=== PATIENT | female | born 1940 | race African-American/Black ===

== ENCOUNTER 2023-02-03 23:39 | Emergency (ER) | payer OTHER ==
[~2023-02-03] VITALS: Ht 157.5 cm; Wt 70.0 kg
[2023-02-04 00:30] LABS: Basophils # (auto) 0 10 ^3/uL (0-0.2); Basophils % (auto) 0.9 % (0.0-2.0); Eosinophils # (auto) 0.3 10 ^3/uL (0-0.8); Eosinophils % (auto) 5.3 % (0.0-7.0); Hematocrit 45.8 % (36.0-46.0); Hemoglobin 15.1 g/dL (12.2-16.2); Lymphocytes # (auto) 1.3 10 ^3/uL (0.4-5.4); Lymphocytes % (auto) 24.9 % (10.0-50.0); Mean Corpuscular Hemoglobin 29.9 pg (28.0-32.0); Mean Corpuscular Volume 90.8 fL (80.0-100.0); Monocytes # (auto) 0.6 10 ^3/uL (0-1.3); Monocytes % (auto) 10.5 % (0.0-12.0); Neutrophils # (auto) 3.1 10 ^3/uL (1.6-8.6); Neutrophils % (auto) 58.4 % (37.0-80.0); Red Blood Cells 5.05 10^6/uL (4.0-5.20); Red Cell Distribution Width 14.2 % (11.8-14.3); White Blood Cell 5.3 10^3/uL (4.4-10.8)
[2023-02-04] MEDS ORDERED: KETOROLAC TROMETH 30 MG/ML 1ML VIAL IV ONE (00:30)
[2023-02-04 00:48] LABS: Albumin 3.3 g/dL (3.4-5.0); BUN/Creatinine Ratio 13.3 (10.0-20.0); Calcium 9.6 mg/dL (8.5-10.1); Potassium 3.7 mmol/L (3.5-5.1)
[2023-02-04 00:51] LABS: Bilirubin, Total 0.3 mg/dL (0.2-1.0); Total Protein 6.8 g/dL (6.4-8.2)
[2023-02-04] MEDS ORDERED: IPRATROPIUM BROM 0.5 MG/2.5ML INH SOL NEB ONE (01:15)
[2023-02-04] MEDS ORDERED: methylPREDNISolone SOD SUCC 125 MG/2 ML VL IV ONE (01:15)
[2023-02-04] MEDS ORDERED: ALBUTEROL SULF 2.5 MG/0.5ML(0.5%) NEB SOLN NEB ONE (01:15)
[2023-02-04] MEDS ORDERED: PREGABALIN 25 MG CAP PO ONE (06:30)
[2023-02-04] MEDS ORDERED: VENLAFAXINE HCL 37.5mg XR cap PO ONE (06:30)
[2023-02-04 11:00] VITALS: BP 119/70
== END 2023-02-04 13:31 | disposition home or self-care (01) ==
LOC: ER 23:39 → EDBD 23:39 → ER 02-04 13:31
DX: J44.1 Chronic obstructive pulmonary disease with (acute) exacerbation (principal); R09.02 Hypoxemia; E11.9 Type 2 diabetes mellitus without complications; R07.89 Other chest pain
CPT/HCPCS: 36415; 36600; 71045; 80053; 82805; 83880; 84484; 85025; 93005; 94640; 96374; 96375; 99285; J1885; J2930; J7644

== ENCOUNTER 2025-08-26 17:31 | Inpatient (IN) | payer OTHER ==
[~2025-08-26] VITALS: Ht 149.9 cm; Wt 56.7 kg
[2025-08-26 19:10] LABS: Hematocrit 40.3 % (36.0-46.0); Hemoglobin 13.4 g/dL (12.2-16.2); Mean Corpuscular Hemoglobin 29.5 pg (28.0-32.0); Mean Corpuscular Volume 88.6 fL (80.0-100.0); Nucleated Red Blood Cells % 0.1 %
[2025-08-26 19:33] LABS: Alanine Aminotransferase 15 U/L (7-40); Albumin 3.8 g/dL (3.2-4.8); Alkaline Phosphatase 86 U/L (46-116); Anion Gap 8 (5-15); BUN/Creatinine Ratio 10.7 (10.0-20.0); Blood Urea Nitrogen 13 mg/dL (9-23); Calcium 8.9 mg/dL (8.7-10.4); Carbon Dioxide 29 mmol/L (20-31); Glucose 97 mg/dL (74-106); Potassium 3.9 mmol/L (3.5-5.1); Total Protein 6.4 g/dL (5.7-8.2)
[2025-08-26 19:35] LABS: Bilirubin, Total 0.3 mg/dL (0.2-1.0); Chloride 110 mmol/L (98-107); Sodium 147 mmol/L (136-145)
--- NOTE | 2025-08-26 20:03 | ED.PDOC ---
History of Present Illness HPI Comments Ms. Granda is a 85-year-old female with prior medical history of type 2 diabetes mellitus with peripheral neuropathy, osteoarthritis, osteoporosis, secondary pulmonary hypertension, chronic respiratory failure, who presents today via with chief complaint of shortness of breath. The patient is a poor historian and states that she is unsure why she was brought for evaluation. She states she was at a doctor's appointment at [facility] for evaluation of peripheral neuropathy, when she was told she needed to be brought to the emergency room. Per EMS notes, the patient presented shortness of breath and was saturating 88% requiring supplemental. She she used to have home oxygen 2L [place], however for reasons unknown to her she no longer has home oxygen. She states she utilizes her daughter's oxygen tank at home as needed, with frequent shortness of breath on minimal exertion. Additionally refers presence of dry cough for the last 2 months. She denies fever, nausea, vomiting, nasal congestion, sore throat, chest pain, and palpitations. She was brought to the emergency department and placed on supplemental oxygen pending further evaluation. Attestation note: Dr. Kebede: I was the supervising attending for this ED encounter. Please see the resident's notes. I was available for questions and consultations. Differential diagnosis: DDx include ACS, unstable angina, anxiety, PE, pneumothroax, neoplasm, cardiac ischemia, COPD, asthma, CHF, pleural effusion, tobacco abuse, pneumonia, hypoxia, hypercapnia, anemia., infection/sepsis., pulmonary edema. Asthma, Cardiac tamponade, infection. MDM: MDM: patient presented with the above HPI.--dyspnea---workup was initiated. patient was found with the above mentioned diagnosis. the following medications were ordered: please refer to order lists of meds and tests obtained by myself Dr. Kebede. Patient ED course and VS have been stabilized. Patient has been reassessed in the ED and remained in a stable condition. Pertinent incidental findings were discussed with the patient and/or family. Patient/family voices understanding and is agreeable with plan. Patient has been observed in the ED adequate length of time to insure improvement/stability. Escalation of care considered: Consideration of escalation to observation or admission [facility] facility was consulted. Given the patient's findings of pulmonary embolus, the Patient was ADMITTED to the medicine team for further evaluation and treatment of their presentation. Lovenox initiated in the ED. No contraindications for anticoagulation. All the reports of any imaging studies that were ordered by myself were reviewed by myself. Chief Complaint: Shortness of Breath Time Seen by MD: 18:03 Reviewed Notes: Allergies Allergies: Coded Allergies: NO KNOWN ALLERGIES (Unverified , 02/04/23) Home Meds Active Scripts Pantoprazole Sodium Sesquihydr (Protonix) 40 Mg Tab, 40 MG PO DAILY for 30 Days, #30 TAB 3 Refills Prov:LONG ARVIZU MD 08/28/25 Apixaban Base (ELIQUIS) 5 Mg Tab, 10 MG PO BID for 7 Days, #14 TAB 10MG BID X 7 DAYS THEN 5MG PO BID FOR AT LEAST 6 MONTHS FOR DVT/PE TREATMENT Prov:LONG ARVIZU MD 08/28/25 Apixaban Base (ELIQUIS) 5 Mg Tab, 5 MG PO BID for 30 Days, #60 TAB 2 Refills Prov:LONG ARVIZU MD 08/28/25 Information Source: Patient Mode of Arrival: EMS Severity: Mild Timing: Hours Duration: Since onset Past Medical History PAST MEDICAL HISTORY: Asthma, COPD, DM Past Medical History (Other): Peripheral neuropathy, osteoarthritis, osteoporosisi, secondary pulmonary hypertension with chronic respiratory failure Surgical History: Denies all surgeries [employer] History: Denies all [employer] Hx Family History Family History: Reviewed,noncontributory to illness Social History Smoker: Non-Smoker, Other (History of second hand spoke exposure for over 20 years ) Alcohol: Denies ETOH Use Drugs: Denies Drug Use Lives In: Home Constitutional: denies: chills, diaphoresis, fatigue, fever, malaise, sweats EENTM: denies: hearing loss, mouth swelling, nasal discharge, nose congestion, nose pain, throat pain, throat swelling Respiratory: reports: cough, shortness of breath; denies: orthopnea, wheezing Cardiovascular: denies: chest pain, dizzy spells, diaphoresis, edema, lightheadedness, palpitations, syncope Gastrointestinal: denies: abdominal pain, difficulty swallowing, nausea, poor appetite, vomiting Genitourinary: denies: burning, dysuria, flank pain, frequency, hematuria, incontinence, urgency Neurological: reports: tingling (Tingling in hands and feet); denies: dizziness, fainting, headache, weakness Musculoskeletal: denies: back pain, joint pain, muscle pain, neck pain Integumetry: denies: rash Physical Exam General Appearance: Normal HEENT: Normal ENT Inspection, PERRL/EOMI, Pharynx Normal Neck: Full Range of Motion, Non-Tender, Normal Inspection Respiratory: Chest Non-Tender, No Accessory Muscle Use, No Respiratory Distress, Normal Breath Sounds (Bilateral chest expansion, normal breath sounds without associated wheezing or crackles ) Cardiovascular: No Edema, No Murmur, Normal Peripheral Pulses, Regular Rate/Rhythm Breast Exam: Deferred Gastrointestinal: No Organomegaly, Non Tender, Normal Bowel Sounds Genitalia: Deferred Pelvic: Deferred Rectal: Deferred Extremities: Normal inspection, Normal range of motion, Non-tender, No pedal edema Neurologic: Normal Affect, Normal Mood Cerebellar Function: NOT DONE Reflexes: NOT DONE Skin: Normal Color Lymphatic: Other (No cervical ) Was a procedure done? Was a procedure done?: No EKG EKG : Pulse Rate (adult): 89 Needles: Normal Cardiac Rhythm: NSR Hypertrophy: LAE Comments Borderline T abnormalities, anterior leads Differential Dx Considerations may include: Respirtory distress, Acute on chronic respiratory failure, pneumonia, bronchitis, influenza, pulmonary embolism, COPD exacerbation X-Ray, Labs, Meds, VS Vital Signs Date Time Temp Pulse Resp B/P (MAP) Pulse Ox O2 Delivery O2 Flow Rate FiO2 08/26/25 23:32 98.1 75 14 139/79 (99) 98 98.1 08/26/25 22:31 18 97 Nasal Cannula* 2 28 08/26/25 21:19 89 08/26/25 20:09 98.3 81 18 130/83 (99) 90 98.3 08/26/25 19:10 98.0 77 17 150/81 (104) 98 98.0 08/26/25 17:54 97.9 90 20 176/70 94 97.9 08/26/25 17:54 20 94 Nasal Cannula* 2 28 08/26/25 17:34 89 Lab Test 08/26/25 23:42 08/26/25 19:03 Range/Units Prothrombin Time 10.6 9.3-11.8 sec Prothrombin Time INR 1.00 0.9-1.15 Activated Partial Thromboplast Time 27.1 24.5-34.5 SEC Troponin I High Sensitivity 15 13 </=34 ng/L White Blood Count 4.3 L 4.4-10.8 10^3/uL Red Blood Count 4.55 4.0-5.20 10^6/uL Hemoglobin 13.4 12.2-16.2 g/dL Hematocrit 40.3 36.0-46.0 % Mean Corpuscular Volume 88.6 80.0-100.0 fL Mean Corpuscular Hemoglobin 29.5 28.0-32.0 pg Mean Corpuscular Hemoglobin Concent 33.3 32.0-36.0 g/dL Red Cell Distribution Width 15.0 H 11.8-14.3 % Platelet Count 230 140-450 10^3/uL Mean Platelet Volume 7.9 6.9-10.8 fL Neutrophils (%) (Auto) 53.7 37.0-80.0 % Lymphocytes (%) (Auto) 33.4 10.0-50.0 % Monocytes (%) (Auto) 8.5 0.0-12.0 % Eosinophils (%) (Auto) 3.3 0.0-7.0 % Basophils (%) (Auto) 1.1 0.0-2.0 % Neutrophils # (Auto) 2.3 1.6-8.6 10 ^3/uL Lymphocytes # (Auto) 1.4 0.4-5.4 10 ^3/uL Monocytes # (Auto) 0.4 0-1.3 10 ^3/uL Eosinophils # (Auto) 0.1 0-0.8 10 ^3/uL Basophils # (Auto) 0 0-0.2 10 ^3/uL Nucleated Red Blood Cells 0.1 % D-Dimer, Quantitative 2.26 H 0.0-0.49 mg/L FEU Sodium Level 147 H 136-145 mmol/L Potassium Level 3.9 3.5-5.1 mmol/L Chloride Level 110 H 98-107 mmol/L Carbon Dioxide Level 29 20-31 mmol/L Anion Gap 8 5-15 Blood Urea Nitrogen 13 9-23 mg/dL Creatinine 1.21 H 0.550-1.02 mg/dL Glomerular Filtration Rate Calc 44 >90 mL/min BUN/Creatinine Ratio 10.7 10.0-20.0 Serum Glucose 97 74-106 mg/dL Calcium Level 8.9 8.7-10.4 mg/dL Total Bilirubin 0.3 0.2-1.0 mg/dL Aspartate Amino Transferase (AST) 21 13-40 U/L Alanine Aminotransferase (ALT) 15 7-40 U/L Alkaline Phosphatase 86 46-116 U/L B-Type Natriuretic Peptide 29.49 0-100 pg/mL Total Protein 6.4 5.7-8.2 g/dL Albumin 3.8 3.2-4.8 g/dL Time of 1ST Reevaluation: 20:30 Reevaluation 1ST: Unchanged Time of 2ND Reevaluation: 23:39 (SPOKE WITH THE SAGE PHYSICIAN AGAIN. I asked specifically if the patient has a any contraindications for anticoagulation based on the history that they have. They said no. They authorized us to keep the patient here given the CT scan findings of pulmonary embolus. Dr. Caro. ) Reevaluation 2ND: Unchanged Patient Education/Counseling: Diagnosis, Treatment Family Education/Counseling: Other SEPSIS Sepsis Screen Date sepsis recognized/suspect: Aug 26, 2025 Time Sepsis recognized/suspect: 1745 Recent Procedure: No On Antibiotic Therapy: No Respiratory Rate >20: No Heart Rate >90: No Temp<36 C (96.8 F) or >38.3 C: No SBP <90 or MAP <65 mmHG: No New Acute Mental Status Change: No Is the patient on CPAP, BIPAP,: No Physician Orders Chest Xray 1 View (08/26/25 18:55) Imaging Transfer Request (08/26/25 22:05) Ct Angio Chest Contrast (08/26/25 22:12) Vital Signs Date Time Temp Pulse Resp B/P (MAP) Pulse Ox O2 Delivery O2 Flow Rate FiO2 08/26/25 23:32 98.1 75 14 139/79 (99) 98 98.1 08/26/25 22:31 18 97 Nasal Cannula* 2 28 08/26/25 21:19 89 08/26/25 20:09 98.3 81 18 130/83 (99) 90 98.3 08/26/25 19:10 98.0 77 17 150/81 (104) 98 98.0 08/26/25 17:54 97.9 90 20 176/70 94 97.9 08/26/25 17:54 20 94 Nasal Cannula* 2 28 08/26/25 17:34 89 Laboratory Tests Test 08/26/25 19:03 White Blood Count 4.3 10^3/uL (4.4-10.8) L Departure 1 Departure Time of Disposition: 21:16 (Patient was brought by ambulance due to shortness of breath and saturation of 88% concerning respiratory distress, acute on chronic respiratory failure, COPD exacerabation, pneumonia, bronchitis, influenza, pulmonary embolism. 1. I ordered and reviewed atleast 3 labs including CBC, CMP, troponins, d-dimer. I have ordered and reviewed the following: EKG showing sinus rhythm, probable left atrial enlargement, borderline T abnormalities and Chest xray with possible hiatal hernia. I have reviewed the above data ... Patient is stable at this time. She is requires admission for further work up and management. She is stable for transfer to [facility]. ) Impression: Primary Impression: Hypoxia Additional Impressions: Respiratory distress Pulmonary embolus Disposition: ADMITTED INPATIENT [facility]mit [facility]: [facility] Condition: Guarded Additional Instructions: Patient was brought via ambulance from a [facility] outpatient clinic due to shortness of breath and saturation of 88% On evaluation here the patient was well, vitals were stable, saturation of > 95% on 2 L of oxygen Physical examination without positive findings CBC shows minor leukopenia with WBCs of 4.3 other findings within normal range, CMP mild hypernatremia of 147 and slightly elevated creatinine 1.21. BNP 29.49, troponins negative EKG shows sinus rhythm, probable left atrial enlargement, borderline T abnormalities Chest x-ray shows possible hiatal hernia with no other acute findings It is considered the patient requires admission for further workup and management On further work up patient was determined to have bilateral pulmonary embolus. She was authorized by [facility] to remain at this institution for further manageme nt. Point of contact with [facility]: Dr. Caro e-Prescriptions Pantoprazole Sodium Sesquihydr (Protonix) 40 Mg Tab 40 MG PO DAILY for 30 Days, #30 TAB 3 Refills Prov: LONG ARVIZU MD 08/28/25 Apixaban Base (ELIQUIS) 5 Mg Tab 10 MG PO BID for 7 Days, #14 TAB 10MG BID X 7 DAYS THEN 5MG PO BID FOR AT LEAST 6 MONTHS FOR DVT/PE TREATMENT Prov: LONG ARVIZU MD 08/28/25 Apixaban Base (ELIQUIS) 5 Mg Tab 5 MG PO BID for 30 Days, #60 TAB 2 Refills Prov: LONG ARVIZU MD 08/28/25 Discharged With: Self Critical Care Note Critical Care Time?: Yes (1 hr-critical care time only) Stability Stability form required: No Heart Score Heart Score: Heart Score Response (Comments) Value History N/A 0 EKG N/A 0 Age N/A 0 Risk Factors N/A 0 Troponin N/A 0 Total 0 AXEL HARRINGTON Aug 26, 2025 20:03 CLARIBEL KEBEDE DO Aug 26, 2025 23:32
--- NOTE | 2025-08-26 20:38 | DVH ---
CHEST RADIOGRAPH Indication: Shortness of breath Technique: Single frontal view of the chest was obtained Comparison: XY CHEST PORTABLE on DOS: 02/04/23 FINDINGS/IMPRESSION: Elevation of the right hemidiaphragm, possibly partially referable to hiatal her akhil, correlation with any prior outside CT is suggested. Prominence of the interstitial markings. Un changed cardiomediastinal silhouette. No pleural effusion or pneumothorax. Unchanged osseous structu res.
[2025-08-26] MEDS: IPRATROPIUM BROM 0.5 MG/2.5ML INH SOL NEB ONE (22:31)
[2025-08-26] MEDS: ALBUTEROL SULF 2.5 MG/0.5ML(0.5%) NEB SOLN NEB ONE (22:31)
[2025-08-26] MEDS: IOHEXOL 350 MG/ML 100ML IJ ONE (23:27)
--- NOTE | 2025-08-26 23:34 | DVH ---
CTA Chest with intravenous contrast INDICATION: sob, elevated D dimer COMPARISON: None TECHNIQUE: Multidetector spiral CTA of the chest was performed of the chest with intravenous contrast . PULMONARY ANGIOGRAPHY PROTOCOL was utilized using a bolus-tracking technique centered on the main p ulmonary artery. Axial, coronal and sagittal multiplanar and MIP reformats were performed. Radiation Dose : 1. Chest: CTDI volume is mGy. Dose-length product is mGy*cm The dose indicators for CT are the volume Computed Tomography (CT) Dose Index (CTDIvol) and the Dose Length Product (DLP), and are measured in units of mGy and mGy-cm, respectively. These indicators are not patient dose, but values generated from the CT scanner acquisition factors. The report includes radiation exposure data for exposures received during this examination. Findings: Pulmonary artery: Filling defects within the lingular segmental and bilateral lower lobe subsegmental branches of the p ulmonary artery consistent with multiple pulmonary emboli. Lower neck: Normal thyroid. Lungs: No focal consolidation, pleural effusion or pneumothorax. Moderate bibasilar atelectasis. Heart/Vascular Structures: Cardiomegaly without evidence of right heart strain. No pericardial effusi on. Atherosclerotic vascular calcifications. Lymph Nodes: No adenopathy Musculoskeletal: No acute osseous abnormality. Soft tissues: Normal. Upper abdomen: Large hiatal hernia containing segments of bowel and stomach. Limited portions of the upper abdomen are unremarkable status post cholecystectomy. IMPRESSION: 1. Multiple pulmonary emboli as described above. No evidence of right heart strain. 2. No acute intrathoracic abnormality. Critical Result: Pulmonary embolus Findings discussed with CLARIBEL KEBEDE at 08/27/2025 02:28 AM EST, and acknowledged receipt and understa nding of the findings.
[2025-08-26] MEDS: methylPREDNISolone SOD SUCC 125 MG/2 ML VL IV ONE (23:38)
[2025-08-27] VITALS (13 sets, daily range): BP systolic 112–157; BP diastolic 76–94; PULSE 77–107; RESP 16–22; TEMP 97.7–98.6; O2SAT 92–99
[2025-08-27] MEDS ORDERED: NITROGLYCERIN 0.4 MG SL TAB SL PRN
[2025-08-27] MEDS ORDERED: MORPHINE SULFATE INJ 2 MG/ml SYRG IV PRN
[2025-08-27] MEDS ORDERED: ONDANSETRON HCL 4 MG/2 ML VIAL IV PRN (00:15)
[2025-08-27 00:23] LABS: INR 1.0 (0.9-1.15); Partial Thromboplastin Time 27.1 SEC (24.5-34.5); Prothrombin Time 10.6 sec (9.3-11.8)
[2025-08-27] MEDS: ENOXAPARIN SOD 100 MG/1 ML SYRINGE SC ONE (00:31)
--- NOTE | 2025-08-27 01:48 | DVHHP2 ---
History of Present Illness Reason for Visit: Shortness for breath History of Present Illness 85-year-old female presents for evaluation of shortness for breath. Patient had an appointment with her [facility] provider today for evaluation of peripheral neuropathy. She was noted to be hypoxic in the 70s on room air. EMS was called to bring her in for evaluation. She reports a history of COPD and occasionally uses her daughter's oxygen. States having a nonproductive cough. Denies any chest pain at the moment. Past Medical History COPD, asthma, prediabetes, peripheral neuropathy Past Surgical History Denies Family History Noncontributory Smoke: No ALCOHOL: none Drugs: None Lives: Alone Review of Systems Review of Systems Review of systems are currently negative otherwise addressed in HPI. Allergies: Coded Allergies: NO KNOWN ALLERGIES (Unverified , 02/04/23) Medications Current Medications Medications Dose Ordered Sig/Gloria Route Start Time Stop Time Status Last Admin Dose Admin Nitroglycerin 0.4 mg Q5MINP PRN SL 08/27/25 00:00 Morphine Sulfate 2 mg Q30M PRN IV 08/27/25 00:00 Enoxaparin Sodium 50 mg Q12HR SC 08/27/25 10:00 Albuterol 2.5 mg Q6HPRN PRN NEB 08/27/25 00:15 Acetaminophen/ Hydrocodone Bitart 1 tab Q4HP PRN PO 08/27/25 00:15 Ondansetron HCl 4 mg Q4HP PRN IV 08/27/25 00:15 Acetaminophen 650 mg Q6HP PRN PO 08/27/25 00:15 Exam Vital Signs Vital Signs Date Time Temp Pulse Resp B/P (MAP) Pulse Ox O2 Delivery O2 Flow Rate FiO2 08/27/25 01:00 98 Nasal Cannula* 2 28 08/27/25 01:00 98.1 79 18 139/79 98.1 Exam Gen: 85-year-old female in mild distress Skin: Warm, dry, normal color and texture, no rash. HEENT: Normocephalic atraumatic, mucous membranes moist and pink. Neck: Cervical and supraclavicular nodes normal without enlargement, trachea is midline, thyroid gland is normal without masses. Pulmonary: Clear to auscultation and percussion bilaterally. Cardiac: Regular rate and rhythm. No murmur Abdomen: Soft, nontender, nondistended, bowel sounds present all 4 quadrants, no guarding, no rigidity, no organomegaly. Extremities: No cyanosis, clubbing, no edema Neuro: Cranial nerves II through XII grossly intact, normal affect and speech, no focal motor deficits. Labs/Xrays ORDERING PHYSICIAN: AXEL HARRINGTON PROCEDURE(s): CXR1 - CHEST XRAY 1 VIEW REASON: Shortness of breath ORDER NUMBER(s): [id number], ACCESSION NUMBER(s): [id number] CHEST RADIOGRAPH Indication: Shortness of breath Technique: Single frontal view of the chest was obtained Comparison: XY CHEST PORTABLE on DOS: 02/04/23 FINDINGS/IMPRESSION: Elevation of the right hemidiaphragm, possibly partially referable to hiatal hernia, correlation with any prior outside CT is suggested. Prominence of the interstitial markings. Unchanged cardiomediastinal silhouette. No pleural effusion or pneumothorax. Unchanged osseous structures. RING PHYSICIAN: CLARIBEL KEBEDE DO PROCEDURE(s): CTACH - CT ANGIO CHEST CONTRAST REASON: sob, elevated D dimer ORDER NUMBER(s): [id number], ACCESSION NUMBER(s): [id number] CTA Chest with intravenous contrast INDICATION: sob, elevated D dimer COMPARISON: None TECHNIQUE: Multidetector spiral CTA of the chest was performed of the chest with intravenous contrast. PULMONARY ANGIOGRAPHY PROTOCOL was utilized using a bolus- tracking technique centered on the main pulmonary artery. Axial, coronal and s agittal multiplanar and MIP reformats were performed. Radiation Dose : 1. Chest: CTDI volume is mGy. Dose-length product is mGy*cm The dose indicators for CT are the volume Computed Tomography (CT) Dose Index (CTDIvol) and the Dose Length Product (DLP), and are measured in units of mGy and mGy-cm, respectively. These indicators are not patient dose, but values generated from the CT scanner acquisition factors. The report includes radiation exposure data for exposures received during this examination. Findings: Pulmonary artery: Filling defects within the lingular segmental and bilateral lower lobe subsegmental branches of the pulmonary artery consistent with multiple pulmonary emboli. Lower neck: Normal thyroid. Lungs: No focal consolidation, pleural effusion or pneumothorax. Moderate bibasilar atelectasis. Heart/Vascular Structures: Cardiomegaly without evidence of right heart strain. No pericardial effusion. Atherosclerotic vascular calcifications. Lymph Nodes: No adenopathy Musculoskeletal: No acute osseous abnormality. Soft tissues: Normal. Upper abdomen: Large hiatal hernia containing segments of bowel and stomach. Limited portions of the upper abdomen are unremarkable status post cholecystectomy. IMPRESSION: 1. Multiple pulmonary emboli as described above. No evidence of right heart strain. 2. No acute intrathoracic abnormality. Critical Result: Pulmonary embolus Findings discussed with CLARIBEL KEBEDE at 08/27/2025 02:28 AM EST, and acknowledged receipt and understanding of the findings. Labs Test 08/27/25 00:52 08/26/25 23:42 08/26/25 19:03 Range/Units Prothrombin Time 10.6 9.3-11.8 sec Prothrombin Time INR 1.00 0.9-1.15 Activated Partial Thromboplast Time 27.1 24.5-34.5 SEC White Blood Count 4.3 L 4.4-10.8 10^3/uL Red Blood Count 4.55 4.0-5.20 10^6/uL Hemoglobin 13.4 12.2-16.2 g/dL Hematocrit 40.3 36.0-46.0 % Mean Corpuscular Volume 88.6 80.0-100.0 fL Mean Corpuscular Hemoglobin 29.5 28.0-32.0 pg Mean Corpuscular Hemoglobin Concent 33.3 32.0-36.0 g/dL Red Cell Distribution Width 15.0 H 11.8-14.3 % Platelet Count 230 140-450 10^3/uL Mean Platelet Volume 7.9 6.9-10.8 fL Neutrophils (%) (Auto) 53.7 37.0-80.0 % Lymphocytes (%) (Auto) 33.4 10.0-50.0 % Monocytes (%) (Auto) 8.5 0.0-12.0 % Eosinophils (%) (Auto) 3.3 0.0-7.0 % Basophils (%) (Auto) 1.1 0.0-2.0 % Neutrophils # (Auto) 2.3 1.6-8.6 10 ^3/uL Lymphocytes # (Auto) 1.4 0.4-5.4 10 ^3/uL Monocytes # (Auto) 0.4 0-1.3 10 ^3/uL Eosinophils # (Auto) 0.1 0-0.8 10 ^3/uL Basophils # (Auto) 0 0-0.2 10 ^3/uL Nucleated Red Blood Cells 0.1 % D-Dimer, Quantitative 2.26 H 0.0-0.49 mg/L FEU Sodium Level 147 H 136-145 mmol/L Potassium Level 3.9 3.5-5.1 mmol/L Chloride Level 110 H 98-107 mmol/L Carbon Dioxide Level 29 20-31 mmol/L Anion Gap 8 5-15 Blood Urea Nitrogen 13 9-23 mg/dL Creatinine 1.21 H 0.550-1.02 mg/dL Glomerular Filtration Rate Calc 44 >90 mL/min BUN/Creatinine Ratio 10.7 10.0-20.0 Serum Glucose 97 74-106 mg/dL Calcium Level 8.9 8.7-10.4 mg/dL Total Bilirubin 0.3 0.2-1.0 mg/dL Aspartate Amino Transferase (AST) 21 13-40 U/L Alanine Aminotransferase (ALT) 15 7-40 U/L Alkaline Phosphatase 86 46-116 U/L B-Type Natriuretic Peptide 29.49 0-100 pg/mL Total Protein 6.4 5.7-8.2 g/dL Albumin 3.8 3.2-4.8 g/dL SEPSIS Sepsis Screen Date sepsis recognized/suspect: Aug 26, 2025 Time Sepsis recognized/suspect: 1745 Recent Procedure: No On Antibiotic Therapy: No Respiratory Rate >20: No Heart Rate >90: No Temp<36 C (96.8 F) or >38.3 C: No SBP <90 or MAP <65 mmHG: No New Acute Mental Status Change: No Is the patient on CPAP, BIPAP,: No Physician Orders Electrocardigram (08/26/25 18:55) Chest Xray 1 View (08/26/25 18:55) Imaging Transfer Request (08/26/25 22:05) Ct Angio Chest Contrast (08/26/25 22:12) Troponin-I Hs (08/27/25 00:31) Troponin-I Hs (08/27/25 02:31) Admit (08/26/25 23:56) Nitroglycerin Sublingual (Ntrostat Subli (08/27/25 00:00) Morphine Sulfate Injection (08/27/25 00:00) Stat Ekg For Chest Pain (08/26/25 23:56) Notify Of Changes From Base (08/26/25 23:56) Drilling Contractor For 24 Hours (08/26/25 23:56) Emergency Dysrhythmia Protocol (08/26/25 23:56) Rhythm Strips Once Every Shift (08/26/25 23:56) Oxygen By Nasal Cannula (08/26/25 23:56) Enoxaparin Sodium (Lovenox) (08/27/25 10:00) *Consult (08/27/25 00:05) PTPTT (08/27/25 10:00) Albuterol Medneb (Ventolin Medneb) (08/27/25 00:15) Hydrocodone-Acet 5/325mg Tab ([place] 5/32 (08/27/25 00:15) Ondansetron Hcl (Zofran) (08/27/25 00:15) Complete Blood Count (08/28/25 04:00) Comprehensive Metabolic Panel (08/28/25 04:00) Cardiac Diet-2gna,Lofat,Lochol (08/27/25 Breakfast) Echo 2d Mode Cardiac Dop (08/27/25 00:05) Condition: Fair (08/27/25 00:05) Acetaminophen Tablet (Tylenol Tablet) (08/27/25 00:15) Bedrest With Bathroom Privileg (08/27/25 00:05) Gabapentin Capsule (Neurontin Capsule) (08/27/25 10:00) Vital Signs Date Time Temp Pulse Resp B/P (MAP) Pulse Ox O2 Delivery O2 Flow Rate FiO2 08/27/25 01:00 98 Nasal Cannula* 2 28 08/27/25 01:00 98.1 79 18 139/79 98 2.0 28 98.1 08/27/25 01:00 98 Nasal Cannula 2.0 08/27/25 00:00 79 08/26/25 23:32 98.1 75 14 139/79 (99) 98 98.1 08/26/25 22:31 18 97 Nasal Cannula* 2 28 08/26/25 21:19 89 08/26/25 20:09 98.3 81 18 130/83 (99) 90 98.3 08/26/25 19:10 98.0 77 17 150/81 (104) 98 98.0 08/26/25 17:54 97.9 90 20 176/70 94 97.9 08/26/25 17:54 20 94 Nasal Cannula* 2 28 Laboratory Tests Test 08/26/25 19:03 White Blood Count 4.3 10^3/uL (4.4-10.8) L Medications Medications Dose Ordered Sig/Gloria Route Start Time Stop Time Status Last Admin Dose Admin Albuterol 2.5 mg ONCE ONCE NEB 08/26/25 22:15 08/27/25 01:02 DC 08/26/25 22:31 2.5 MG Enoxaparin Sodium 50 mg ONCE ONCE SC 08/26/25 23:45 08/27/25 01:02 DC 08/27/25 00:31 50 MG Ipratropium [place] 1 mg ONCE ONCE NEB 08/26/25 22:15 08/27/25 01:02 DC 08/26/25 22:31 1 MG Methylprednisolone Sodium Succinate 125 mg ONCE ONCE IV 08/26/25 22:15 08/27/25 01:02 DC 08/26/25 23:38 125 MG Assessment/Plan Assessment/Plan Assessment Pulmonary embolus Acute hypoxic respiratory failure secondary to the above COPD Diabetes mellitus Plan Admit the patient to telemetry to the hospitalist Burke gamez Echocardiogram pending Med nebs Resume home medications Continue treatment per orders. Plan discussed with: Patient My Orders Orders - LONG COVARRUBIAS AGACNP Procedure Category Date Status Time Admit ADMIT 08/26/25 Transmitted 23:56 Nitroglycerin PHA 08/27/25 In Process Sublingual (Ntrostat 00:00 Morphine Sulfate PHA 08/27/25 In Process Injection 00:00 Stat Ekg For Chest AFSANEH 08/26/25 Transmitted Pain 23:56 Notify Of Changes AFSANEH 08/26/25 In Process From Base 23:56 Drilling Contractor For AFSANEH 08/26/25 In Process 24 Hours 23:56 Emergency Dysrhythmia AFSANEH 08/26/25 In Process Protocol 23:56 Rhythm Strips Once AFSANEH 08/26/25 In Process Every Shift 23:56 Oxygen By Nasal RT 08/26/25 Transmitted Cannula 23:56 Enoxaparin Sodium PHA 08/27/25 In Process (Lovenox) 10:00 *Consult CONS 08/27/25 Transmitted 00:05 PTPTT LAB 08/27/25 Logged 10:00 Albuterol Medneb PHA 08/27/25 In Process (Ventolin Medneb) 00:15 Hydrocodone-Acet PHA 08/27/25 In Process 5/325mg Tab ([place] 00:15 Ondansetron Hcl PHA 08/27/25 In Process (Zofran) 00:15 Complete Blood Count LAB 08/28/25 Verified 04:00 Comprehensive LAB 08/28/25 Verified Metabolic Panel 04:00 Cardiac DIET 08/27/25 Transmitted Diet-2gna,Lofat,Lochol Breakfast Echo 2d Mode Cardiac US 08/27/25 Logged DOP 00:05 Condition: Fair AFSANEH 08/27/25 In Process 00:05 Acetaminophen Tablet PHA 08/27/25 In Process (Tylenol Tablet) 00:15 Bedrest With Bathroom AFSANEH 08/27/25 In Process Privileg 00:05 Gabapentin Capsule PHA 08/27/25 Transmitted (Neurontin Capsule) 10:00 Date of Service: Aug 26, 2025 Billing Provider: LONG COVARRUBIAS Common Visit Codes: [id number] INP/OBS CARE (HIGH) LONG COVARRUBIAS Aug 27, 2025 01:48
[2025-08-27] MEDS: ACETAMINOPHEN 325 MG TAB PO PRN (02:20)
[2025-08-27 04:18] LABS: Urine Protein, UAD Negative (Negative)
[2025-08-27] MEDS: GABAPENTIN 100 MG CAP PO SCH (09:11)
[2025-08-27] MEDS: ENOXAPARIN SOD 100 MG/1 ML SYRINGE SC SCH (09:11)
[2025-08-27 10:41] LABS: INR 0.99 (0.9-1.15); Partial Thromboplastin Time 30.4 SEC (24.5-34.5); Prothrombin Time 10.5 sec (9.3-11.8)
--- NOTE | 2025-08-27 11:20 | ECG ---
[facility] Test Date: 2025-08-26 Test Time: 17:34:44 Pat Name: STACY OLMEDO Department[facility] Patient [facility]: [id number] Room: 0294T A Gender: F Phosphoric Acid Operator: nicole : 1940 Requested By: AXEL HARRINGTON Order Number: [id number] Reading MD: Shravan Hansen Measurements Intervals [place] Rate: 89 P: 59 [place]: 164 QRS: 72 QRSD: 96 T: 10 QT: 377 QTc: 459 Interpretive Statements Sinus rhythm Probable left atrial enlargement Low voltage, precordial leads Borderline T abnormalities, anterior leads Electronically Signed On 09-01-2025 14:12:24 PDT by Shravan Hansen Please click the below link to view image of tracing.
--- NOTE | 2025-08-27 13:31 | DVHPN2 ---
Progress Note Date Seen: Aug 27, 2025 Medical Necessity Reason Pt with a Central, PICC or Fol: No Subjective Patient reports: No new complaints Review of Systems: HEENT:Normal, CVS:Normal, RESPIRATORY:Normal, GI:Normal, :Normal, MSK:Normal, NEURO:Normal Objective vital signs Vital Sign Date Time Temp Pulse Resp B/P (MAP) Pulse Ox O2 Delivery O2 Flow Rate FiO2 08/27/25 10:00 99 Nasal Cannula 2.0 08/27/25 10:00 28 08/27/25 09:00 97.7 98 16 152/94 (113) 97.7 Total Intake and Output 08/26/25 08/26/25 08/27/25 15:00 23:00 07:00 Intake Total 0 ml Balance 0 ml medications Current Medications Medications Dose Ordered Sig/Gloria Route Start Time Stop Time Status Last Admin Dose Admin Nitroglycerin 0.4 mg Q5MINP PRN SL 08/27/25 00:00 Morphine Sulfate 2 mg Q30M PRN IV 08/27/25 00:00 Enoxaparin Sodium 50 mg Q12HR SC 08/27/25 10:00 08/27/25 09:11 50 MG Albuterol 2.5 mg Q6HPRN PRN NEB 08/27/25 00:15 Acetaminophen/ Hydrocodone Bitart 1 tab Q4HP PRN PO 08/27/25 00:15 Ondansetron HCl 4 mg Q4HP PRN IV 08/27/25 00:15 Acetaminophen 650 mg Q6HP PRN PO 08/27/25 00:15 08/27/25 02:20 650 MG Gabapentin 200 mg BID PO 08/27/25 10:00 08/27/25 09:11 200 MG Examination: GENERAL:Normal, HEENT:Normal, NECK:Normal, LUNGS:Normal, LUNGS:Abnormal (on oxygen), CVS:Normal, ABDOMEN:Normal, MSK:Normal, SKIN:Normal, NEURO:Normal, :Normal laboratory and microbiology Laboratory Tests 08/26/25 19:03 Test 08/26/25 19:03 Range/Units Serum Glucose 97 74-106 mg/dL Problem List/Assessment/Plan Problem List/Assessment/Plan #1 acute resp failure: cont oxygen #2 PE: on lovenox #3 ?hiatal hernia: ct abd #4 copd with exacerbation #5 pain both legs: doppler #6 wt loss unstable for transfer advance care planning- full code- time spent 18mins Plan discussed with: Patient Date of Service: Aug 27, 2025 Billing Provider: LONG ARVIZU MD Common Visit Codes: [id number] INP/OBS CARE(HIGH) Secondary Visit Codes: [id number] CARE PLAN 30 MINUTES LONG ARVIZU MD Aug 27, 2025 13:31
--- NOTE | 2025-08-27 14:56 | DVH ---
Bilateral lower extremity venous duplex Clinical History: edema Comparison: None Findings: Duplex Doppler evaluation of the deep venous systems of both lower extremities from the common femora l veins to the popliteal veins including color Doppler and spectral/pulsed waveform analysis was perf ormed. RIGHT SIDE: The common femoral vein demonstrates appropriate compressibility and waveform variability. There is compressibility/patency of the great saphenous vein at the proximal thigh. The femoral vein demonstrates appropriate compressibility and waveform variability. The deep femoral vein demonstrates appropriate compressibility and waveform variability. The popliteal vein demonstrates appropriate compressibility and waveform variability. There is normal compressibility at the tibioperoneal trunk. LEFT SIDE: The common femoral vein demonstrates appropriate compressibility and waveform variability. There is compressibility/patency of the great saphenous vein at the proximal thigh. The femoral vein demonstrates appropriate compressibility and waveform variability. The deep femoral vein demonstrates appropriate compressibility and waveform variability. The popliteal vein demonstrates appropriate compressibility and waveform variability. There is normal compressibility at the tibioperoneal trunk. 6 cm right popliteal cyst IMPRESSION: No right or left femoropopliteal venous thrombosis. If clinical concern/symptoms persist or worsen, short-interval follow-up study is suggested. END IMPRESSION:
--- NOTE | 2025-08-27 15:36 | DVH ---
Indication: ABD PAIN Technique: CT axial images of the abdomen and pelvis are obtained without contrast. Coronal and sagit day reformats were obtained. Radiation Dose Information: CTDI volume is 5.7 mGy. Dose-length product is 280 mGy*cm Comparison: None FINDINGS: There is limited interpretation of the abdomen and pelvis without administration of intravenous contr ast. Lung bases demonstrate atelectasis. Left lower lobe tree-in-bud nodularity. Adrenal glands unremarkable. Spleen unremarkable. Pancreas unremarkable. Cholecystectomy. Liver unremarkable in shape. Contrast from the previous examination within the renal collecting system/ureters. 1 cm left renal [address]. There is a large hiatal hernia containing the entirety of the stomach and a portion of the transverse colon. Small bowel loops are demonstrating fecal like contents. Colonic diverticular disease. Moderate volume stool throughout the colon. No secondary signs for appe ndicitis. Abdominal aortic atherosclerotic disease and tortuosity. Bladder partially distended with contrast. No free pelvic fluid. No inguinal lymphadenopathy. [id number] bilateral sacroiliac degenerative joint disease. Old fracture left pubic ramus. No a ggressive osseous process. Moderate thoracolumbar degenerative disease. 6 mm anterolisthesis L4 upon L5. Moderate to advanced lumbar facet hypertrophic changes IMPRESSION: Limited evaluation without contrast. Large hiatal hernia containing the entirety of the stomach and portion of the transverse colon. Colonic diverticular disease, Moderate volume stool in the colon. Fecal like contents within the small bowel which can be seen with ileus, hypomotility, bowel obstruct ion. Cholecystectomy. Other findings as described.
[2025-08-27] MEDS: SODIUM CHLORIDE 0.9% 1,000 ML IV SCH (15:38)
[2025-08-28] VITALS (11 sets, daily range): BP systolic 114–132; BP diastolic 72–81; PULSE 58–84; RESP 16–20; TEMP 97.7–98.4; O2SAT 95–100
[2025-08-28] MEDS: HYDROcodone-ACET 5/325MG TAB PO PRN (06:01)
[2025-08-28 08:41] LABS: Hematocrit 37.1 % (36.0-46.0); Hemoglobin 12.3 g/dL (12.2-16.2); Mean Corpuscular Hemoglobin 29.6 pg (28.0-32.0); Mean Corpuscular Volume 89.5 fL (80.0-100.0); Nucleated Red Blood Cells % 0.1 %
[2025-08-28 08:54] LABS: Alanine Aminotransferase 18 U/L (7-40); Anion Gap 9 (5-15); BUN/Creatinine Ratio 17.8 (10.0-20.0); Blood Urea Nitrogen 16 mg/dL (9-23); Carbon Dioxide 27 mmol/L (20-31); Glucose 78 mg/dL (74-106); Potassium 4.3 mmol/L (3.5-5.1); Total Protein 5.7 g/dL (5.7-8.2)
[2025-08-28 08:55] LABS: Albumin 3.4 g/dL (3.2-4.8); Bilirubin, Total 0.5 mg/dL (0.2-1.0)
[2025-08-28 08:56] LABS: Calcium 8.6 mg/dL (8.7-10.4); Chloride 111 mmol/L (98-107); Sodium 147 mmol/L (136-145)
--- NOTE | 2025-08-28 14:24 | DVHDS2 ---
Discharge Summary Date of Admission Aug 26, 2025 at 23:56 Date of Discharge: Aug 28, 2025 Labs/Diagnostic Data: Laboratory Results Test 08/28/25 07:25 08/27/25 09:58 08/27/25 02:45 08/27/25 01:16 White Blood Count 6.1 10^3/uL (4.4-10.8) Red Blood Count 4.15 10^6/uL (4.0-5.20) Hemoglobin 12.3 g/dL (12.2-16.2) Hematocrit 37.1 % (36.0-46.0) Mean Corpuscular Volume 89.5 fL (80.0-100.0) Mean Corpuscular Hemoglobin 29.6 pg (28.0-32.0) Mean Corpuscular Hemoglobin Concent 33.1 g/dL (32.0-36.0) Red Cell Distribution Width 15.3 % (11.8-14.3) Platelet Count 217 10^3/uL (140-450) Mean Platelet Volume 8.7 fL (6.9-10.8) Neutrophils (%) (Auto) 61.7 % (37.0-80.0) Lymphocytes (%) (Auto) 30.6 % (10.0-50.0) Monocytes (%) (Auto) 5.9 % (0.0-12.0) Eosinophils (%) (Auto) 1.1 % (0.0-7.0) Basophils (%) (Auto) 0.7 % (0.0-2.0) Neutrophils # (Auto) 3.8 10 ^3/uL (1.6-8.6) Lymphocytes # (Auto) 1.9 10 ^3/uL (0.4-5.4) Monocytes # (Auto) 0.4 10 ^3/uL (0-1.3) Eosinophils # (Auto) 0.1 10 ^3/uL (0-0.8) Basophils # (Auto) 0 10 ^3/uL (0-0.2) Nucleated Red Blood Cells 0.1 % Sodium Level 147 mmol/L (136-145) Potassium Level 4.3 mmol/L (3.5-5.1) Chloride Level 111 mmol/L (98-107) Carbon Dioxide Level 27 mmol/L (20-31) Anion Gap 9 (5-15) Blood Urea Nitrogen 16 mg/dL (9-23) Creatinine 0.90 mg/dL (0.550-1.02) Glomerular Filtration Rate Calc 62 mL/min (>90) BUN/Creatinine Ratio 17.8 (10.0-20.0) Serum Glucose 78 mg/dL (74-106) Calcium Level 8.6 mg/dL (8.7-10.4) Total Bilirubin 0.5 mg/dL (0.2-1.0) Aspartate Amino Transferase (AST) 32 U/L (13-40) Alanine Aminotransferase (ALT) 18 U/L (7-40) Total Protein 5.7 g/dL (5.7-8.2) Albumin 3.4 g/dL (3.2-4.8) Prothrombin Time 10.5 sec (9.3-11.8) Prothrombin Time INR 0.99 (0.9-1.15) Activated Partial Thromboplast Time 30.4 SEC (24.5-34.5) Troponin I High Sensitivity 17 ng/L (</=34) Urine Color Light-yellow (Yellow) Urine Clarity Clear (Clear) Urine pH 7.0 (5.0-9.0) Urine Specific [place] 1.026 (1.001-1.035) Urine Protein Negative (Negative) Urine Ketones Negative (Negative) Urine Blood Negative /uL (Negative) Urine Nitrite Negative (Negative) Urine Bilirubin Negative (Negative) Urine Urobilinogen Normal mg/dL (Negative) Urine Leukocyte Esterase Negative /uL (Negative) Urine RBC <1 /hpf (0 - 4) Urine Microscopic WBC < 1 /HPF (0-5) Urine Squamous Epithelial Cells Few /hpf (<5) Urine Bacteria None seen /hpf (None Seen) Urine Glucose Normal mg/dL (Normal) Test 08/26/25 19:03 D-Dimer, Quantitative 2.26 mg/L FEU (0.0-0.49) B-Type Natriuretic Peptide 29.49 pg/mL (0-100) Other Laboratory Tests 08/28/25 07:25 Brief Hx & Hospital Course: see dictated note Condition at Discharge: Fair Final Diagnosis/Problems List PE Discharge Disposition: Home Discharge Instruct/Medications Diet: Regular Activity: No Restrictions, As Tolerated Follow Up/Referral: fu with pcp/dia in 1 wk Medications: script to pharmacy pulse ox on room air Discharge Statement: "Patient was advised to return to the ER or call 911 if any headaches, dizziness, shortness of breath, chest pain, abdominal pain, bleeding, fevers, or worsening of medical condition. Patient was counseled about treatment plan, medications, possible side effects, patientverbalized understanding. All questions were answered to the best of my ability. This discharge took greater then 30 minutes in planning, reviewing documentation, counseling the patient, and discussing with other team members." ASSESSMENT ASSESSMENT Assessment PE Date of Service: Aug 28, 2025 Billing Provider: LONG ARVIZU MD Common Visit Codes: [id number]-XVN/OBS DISCH DAY >30min LONG AVRIZU MD Aug 28, 2025 14:24
[2025-08-28] MEDS ORDERED: APIX5TAB PO (14:26)
[2025-08-28] MEDS ORDERED: PANT40TA2 PO (14:26)
--- NOTE | 2025-08-28 14:42 | DVHDS ---
DATE OF DISCHARGE: 08/28/2025 HISTORY OF PRESENT ILLNESS: The patient is an 85-year-old lady who was admitted with a history of increasing shortness of breath and has a history of COPD, peripheral neuropathy, and prediabetes. HOSPITAL COURSE: The patient had a CT angiography that showed evidence of multiple pulmonary emboli. The patient also had a CT of the abdomen and pelvis that showed a large hiatal hernia containing the entirety of the stomach and portion of the transverse colon. The patient had troponin levels that were negative. The patient at this time, however, wishes to go home. She has been explained the risk of going home early, especially given her symptoms. The patient will therefore be discharged home as per her wishes. I have given her a copy of the CAT scan of the abdomen as well as the CT angiography to give to her primary care doctor. The patient will be discharged to be on Eliquis 10 mg b.i.d. for 7 days followed by 5 mg b.i.d. along with Protonix 40 mg daily. She will have a pulse ox on room air prior to discharge. Echocardiogram is currently pending. FINAL DIAGNOSES: Therefore, * Acute respiratory failure. * Pulmonary embolism. * Large hiatal hernia. * COPD with exacerbation. * Peripheral neuropathy. * History of weight loss. Time spent in discharge planning and review of plan with the patient and nursing was 39 minutes. MD JACINTO Lopez/RYANN TID: [id number] RECEIPT: [id number]
[2025-08-28 15:07] LABS: Alkaline Phosphatase 70 U/L (46-116)
[2025-08-28 15:17] LABS: Base Excess 0.1 mmol/L (-2.0-3.0)
[2025-08-29] VITALS (12 sets, daily range): BP systolic 100–137; BP diastolic 63–87; PULSE 56–101; RESP 16–22; TEMP 97.7–98.2; O2SAT 91–99
--- NOTE | 2025-08-29 11:30 | DVHSR ---
APPROVED REPORT EXAM: Two-dimensional and M-mode echocardiogram with Doppler and color Doppler. Blood Pressure: 137/85 mmHg INDICATION PE RISK FACTORS Height: 50, Weight: 123 DIMENSIONS LVDd3.5 (3.8-5.7cm)LA (2D)2.9 (1.9-4.0cm)Aortic Root4.0 (2.0-3.7cm) LVDs2.0 (2.5-4.0cm)LA (MM) (1.9-4.0cm)Aortic Cusp Exc1.8 (1.5-2.0cm) EF (%) 74.0 (55-70%)Rt. Atrium3.3 (1.9-4.0cm)Asc. Aorta cm Mitral Valve MitralMitral Stenosis E wave0.50m/sMV Mean GR.mmHg A wave0.68m/sMV Peak GR.mmHg E/A ratio0.72D MVAcm2 DECEL [id number] 1/2 [id number] IVRTmsDop MVA0.94cm2 Aortic Valve Aortic ValveAortic Stenosis LVOT Diameter1.9 (1.8-2.4cm)Doppler AVAcm2 AI P 1/2 [id number] Pulmonic Valve V21.22m/s Other Information Technically limited study due to body habitus. Conclusion Technically good study. Sinus rhythm. Aortic root enlargement. Concentric hypertrophy. Septal hypertrophy predominates. Mild aortic sclerosis without stenosis. Dilated sinuses of Valsalva. The mitral and tricuspid are s tructurally normal. Left ventricular function is preserved at 65% with normal RV function. Mild aortic insufficiency. No pericardial effusion masses or vegetations.
--- NOTE | 2025-08-29 15:59 | DVHPN2 ---
Subjective I am assuming the care of the patient from today onwards. Patient is currently being treated for pulmonary embolism and already has discharge orders pending O2 supplementation arrangement for home. Patient currently denies any symptoms including chest pain shortness of breath. 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 Medications Current Medications Medications Dose Ordered Sig/Gloria Route Start Time Stop Time Status Last Admin Dose Admin Nitroglycerin 0.4 mg Q5MINP PRN SL 08/27/25 00:00 Morphine Sulfate 2 mg Q30M PRN IV 08/27/25 00:00 Enoxaparin Sodium 50 mg Q12HR SC 08/27/25 10:00 08/29/25 10:26 50 MG Albuterol 2.5 mg Q6HPRN PRN NEB 08/27/25 00:15 Acetaminophen/ Hydrocodone Bitart 1 tab Q4HP PRN PO 08/27/25 00:15 08/28/25 06:01 1 TAB Ondansetron HCl 4 mg Q4HP PRN IV 08/27/25 00:15 Acetaminophen 650 mg Q6HP PRN PO 08/27/25 00:15 08/27/25 02:20 650 MG Gabapentin 200 mg BID PO 08/27/25 10:00 08/29/25 10:23 200 MG Sodium Chloride 1,000 ml @ 60 mls/hr [id number] IV 08/27/25 13:30 08/29/25 15:56 60 MLS/HR Laboratory Results Laboratory Tests 08/28/25 07:25 Urinalysis Test 08/27/25 01:16 Urine Color Light-yellow (Yellow) Urine Clarity Clear (Clear) Urine pH 7.0 (5.0-9.0) Urine Specific [place] 1.026 (1.001-1.035) Urine Protein Negative (Negative) Urine Ketones Negative (Negative) Urine Blood Negative /uL (Negative) Urine Nitrite Negative (Negative) Urine Bilirubin Negative (Negative) Urine Urobilinogen Normal mg/dL (Negative) Urine Leukocyte Esterase Negative /uL (Negative) Urine RBC <1 /hpf (0 - 4) Urine Microscopic WBC < 1 /HPF (0-5) Urine Squamous Epithelial Cells Few /hpf (<5) Urine Bacteria None seen /hpf (None Seen) Urine Glucose Normal mg/dL (Normal) Assessment/Plan Assessment/Plan 85-year-old female who initially presented to hospital with increasing shortness of breath found to have 1. Acute hypoxic respiratory failure secondary to pulmonary embolism 2. Multiple pulmonary embolism in sub segmental branches status post therapeutic Lovenox but be switched to Eliquis upon discharge 3. Large hiatus hernia, currently asymptomatic tolerating diet 4. COPD currently not in exacerbation next 5. Peripheral neuropathy -arrange home oxygen, Eliquis as prescribed, risks benefits and alternatives were discussed including life-threatening bleeding disability explained with the patient in detail who understand verbalized understanding and agreeable to plan. Please follow up with PCP in 1-2 weeks. 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
[2025-08-29] MEDS: ALBUTEROL SULF 2.5 MG/0.5ML(0.5%) NEB SOLN NEB PRN (22:13)
[2025-08-30 01:05] VITALS: BP 99/65; PULSE 68; RESP 18; TEMP 97.7; O2SAT 96
[2025-08-30 05:00] VITALS: BP 110/72; PULSE 63; RESP 18; TEMP 97.2; O2SAT 97
[2025-08-30 08:00] VITALS: BP 113/66; PULSE 57; PULSE 64; RESP 15; TEMP 97.8; O2SAT 97
[2025-08-30 10:14] VITALS: O2SAT 98
[2025-08-30 12:20] VITALS: BP 104/73; PULSE 91; RESP 20; TEMP 98.1; O2SAT 91
--- NOTE | 2025-08-30 17:29 | DVHPN2 ---
Subjective I am assuming the care of the patient from today onwards. Patient is currently being treated for pulmonary embolism and already has discharge orders pending O2 supplementation arrangement for home. Patient currently denies any symptoms including chest pain shortness of breath. 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 Laboratory Results Laboratory Tests 08/28/25 07:25 Urinalysis Test 08/27/25 01:16 Urine Color Light-yellow (Yellow) Urine Clarity Clear (Clear) Urine pH 7.0 (5.0-9.0) Urine Specific [place] 1.026 (1.001-1.035) Urine Protein Negative (Negative) Urine Ketones Negative (Negative) Urine Blood Negative /uL (Negative) Urine Nitrite Negative (Negative) Urine Bilirubin Negative (Negative) Urine Urobilinogen Normal mg/dL (Negative) Urine Leukocyte Esterase Negative /uL (Negative) Urine RBC <1 /hpf (0 - 4) Urine Microscopic WBC < 1 /HPF (0-5) Urine Squamous Epithelial Cells Few /hpf (<5) Urine Bacteria None seen /hpf (None Seen) Urine Glucose Normal mg/dL (Normal) Assessment/Plan Assessment/Plan 85-year-old female who initially presented to hospital with increasing shortness of breath found to have 1. Acute hypoxic respiratory failure secondary to pulmonary embolism 2. Multiple pulmonary embolism in sub segmental branches status post therapeutic Lovenox but be switched to Eliquis upon discharge 3. Large hiatus hernia, currently asymptomatic tolerating diet 4. COPD currently not in exacerbation next 5. Peripheral neuropathy -arrange home oxygen, Eliquis as prescribed, risks benefits and alternatives were discussed including life-threatening bleeding disability explained with the patient in detail who understand verbalized understanding and agreeable to plan. Please follow up with PCP in 1-2 weeks. Plan discussed with: Patient Date of Service: Aug 30, 2025 Billing Provider: JENNIFER AYERS MD Common Visit Codes: [id number] INP/OBS CARE(MOD) JENNIFER AYERS MD Aug 30, 2025 17:29
== END 2025-08-30 16:08 | disposition left against medical advice (07) | DRG 175 ==
LOC: EDUNIT# 17:31 → ER 17:31 → EDBD 17:31 → OVERFLOW 23:56 → TELE-WESTW 08-27 02:05
PROVIDERS: ADMIT Internal Medicine; ATTEND Internal Medicine
DX: I26.99 Other pulmonary embolism without acute cor pulmonale (principal); J96.21 Acute and chronic respiratory failure with hypoxia; J44.1 Chronic obstructive pulmonary disease with (acute) exacerbation; K44.9 Diaphragmatic hernia without obstruction or gangrene; E11.42 Type 2 diabetes mellitus with diabetic polyneuropathy; R63.4 Abnormal weight loss; M81.0 Age-related osteoporosis without current pathological fracture; Z79.01 Long term (current) use of anticoagulants; Z79.899 Other long term (current) drug therapy; Z99.81 Dependence on supplemental oxygen; Z68.24 Body mass index [BMI] 24.0-24.9, adult
CPT/HCPCS: 36415; 36600; 71045; 71275; 74176; 80053; 81001; 82805; 83880; 84484; 85025; 85379; 85610; 85730; 93005; 93306; 93970; 94640; 96374; G0378